=== PATIENT | male | born 1935 | race Caucasian/White ===

== ENCOUNTER 2016-12-02 11:59 | Observation (INO) | payer MEDICARE, OTHER ==
[2016-12-02] MEDS ORDERED: ACETAMINOPHEN 325 MG TABLET PO PRN (12:29)
[2016-12-02] MEDS ORDERED: MAG-AL PLUS XS SUSP 30 ML UDC PO PRN (12:29)
[2016-12-02] MEDS ORDERED: HOME MEDICATION LIST NEEDED 1 EA EACH MC ONE (12:29)
[2016-12-02] MEDS ORDERED: DIPH,PERTUSS(ACELL),TET VAC/PF 0.5 ML VIAL IM ONE (12:35)
[2016-12-02 12:39] LABS: BASOPHIL# 0.1 X 10^3uL (0.0-0.1); EOSINOPHILS# 0.1 X 10^3uL (0.0-0.4); HEMOGLOBIN 17.6 g/dL (14.0-18.0); LYMPHOCYTES 22.8 % (20.0-40.0); LYMPHOCYTES# 1.5 X 10^3uL (0.8-3.8); MEAN CELL VOLUME 93.9 fL (80.0-100.0); MEAN CORPUS. HGB CONCENTRATION 33.9 g/dL (32.0-36.0); MEAN CORPUSCULAR HEMOGLOBIN 31.8 pg (29.0-35.0); MEAN PLATELET VOLUME 7.8 fL (7.4-10.4); MONOCYTES 11.4 % (2.0-10.0); MONOCYTES# 0.7 X 10^3uL (0.2-1.0); NEUTROPHILS 62.8 % (54.0-75.0); NEUTROPHILS# 4.1 X 10^3uL (2.6-6.7); PLATELET COUNT 189 X 10^3uL (130-440); RED BLOOD COUNT 5.54 X 10^6uL (4.20-6.10); RED CELL DISTRIBUTION WIDTH 12.5 % (11.5-14.5); WHITE BLOOD COUNT 6.5 X 10^3uL (3.9-10.7)
[2016-12-02] MEDS ORDERED: NORMAL SALINE 100 ML IV ONE (12:44)
[2016-12-02] MEDS ORDERED: AMPICILLIN/SULBACTAM 1.5 GM/10 ML VIAL IV ONE (12:44)
[2016-12-02 12:46] LABS: BLOOD UREA NITROGEN 19 mg/dL (9-20); CALCIUM 9.3 mg/dL (8.4-10.2); CHLORIDE 95 mmol/L (98-107); GLUCOSE 105 mg/dL (70-100); POTASSIUM 4.3 mmol/L (3.5-5.1); SODIUM 131 mmol/L (137-145)
--- NOTE | 2016-12-02 12:52 | RADIOLOGY REPORT ---
HISTORY: Trauma. COMPARISON: None. TECHNIQUE: AP and lateral left forearm. FINDINGS: There is no evidence of acute fracture. There is normal bone mineralization. There is no evidence of bony erosions or periostitis. There appears to be soft tissue swelling along the dorsum of the forear m. There are degenerative changes between the distal scaphoid and trapezium and trapezoid and at the first carpal metacarpal joint. IMPRESSION: 1. No acute fracture. 2. Soft tissue swelling dorsum forearm. Final Electronic Signature: This report was electronically signed by Toribio Olmos MD on 12/02/2016 1 2:49 PM. linda /
[2016-12-02] MEDS ORDERED: NORMAL SALINE 1,000 ML IV SCH (13:00)
--- NOTE | 2016-12-02 13:19 | ER PHYSICIAN DOCUMENTATION ---
Physician Documentation [facility] Name:Garrett Marino Age:81 yrs Sex:Male :1935 Arrival Date:12/02/2016 Time:11:59 Bed1 Private MD: Placido Gallegos Disposition: 12/02/16 12:47 Admit ordered for Tianna Argueta. Preliminary diagnosis is Cellulitis of Upper Limb - with open wound. - Bed requested for Medical/Surgical. - Condition is Fair. - Problem is new. - Symptoms are unchanged. 23 HR OBS Yes HPI: 12/02 12:15 This 81 yrs old Male presents to ER via Private Vehicle with complaints of cd Left Arm Injury and possible cellulitis. 12:15 The patient or guardian complains of contusion, a laceration, 2 cm(s), simple, infected cd with drainage and surrounding forearm erythema. The complaints affect the palmar aspect of left forearm. Context: The problem was sustained at home, resulted from a direct blow, on a wooden chair., a fall. Onset: The symptom(s)/episode began/occurred acutely, 4 day(s) ago. Treatment prior to arrival includes: no previous treatment. Associated signs and symptoms: Pertinent positives: erythema, swelling, warmth, tenderness, Pertinent negatives: deformity, fever, tingling, vomiting. Severity of symptoms: At their worst the symptoms were moderate, in the emergency department the symptoms are unchanged. The patient has not experienced similar symptoms in the past. Historical: - Allergies: No known drug Allergies; - Home Meds: 1. aspirin 81 mg oral tab 1 tab once daily 2. Lisinopril Oral - PMHx: Hypertension; - PSHx: Hip surgery; Tonsillectomy; Appendectomy; - Tetanus: < 10 years. - Ebola Screening: : Patient negative for fever greater than or equal to 101.5 degrees Fahrenheit, and additional compatible Ebola Virus Disease symptoms. Patient denies exposure to infectious person. Patient denies travel to an Ebola-affected area in the 21 days before illness onset. . - Immunization history: Flu Vaccine < 1 year. - Social history: Smoking status: Patient states was never smoker of tobacco. ROS: 12:15 ENT: Negative for injury, pain, epistaxis and discharge. cd Neck: Negative for injury, pain, stiffness and swelling. Cardiovascular: Negative for chest pain, palpitations, edema and pleuritic pain. Respiratory: Negative for shortness of breath, dyspnea on exertion, cough, sputum production, wheezing, hemoptysis and pleuritic chest pain. Abdomen/GI: Negative for abdominal pain, nausea, vomiting, diarrhea, constipation, distension, melena, hematochezia and hematemesis. Back: Negative for injury, pain or muscle spasms. : Negative for injury, bleeding, discharge, swelling, dysuria, frequency or urgency. 12:15 Neuro: Negative for headache, weakness, numbness, tingling, and seizure. cd 12:15 Constitutional: Positive for poor PO intake, Negative for chills, fever. 12:15 MS/extremity: Positive for contusion, erythema, swelling, tenderness, warmth, of the palmar aspect of left forearm, open 2 cm wound draining pus., Negative for paresthesias, tingling. 12:15 Skin: Positive for cellulitis, of the palmar aspect of left forearm, and open wound to left forearm draining pus. 12:15 All other systems are negative. Exam: Head/Face: Normocephalic, atraumatic. ENT: Nares patent. No nasal discharge, no septal abnormalities noted. Tympanic membranes are normal and external auditory canals are clear. Oropharynx with no redness, swelling, or masses, exudates, or evidence of obstruction, uvula midline. Mucous membranes moist. Neck: Trachea midline, no thyromegaly or masses palpated, and no cervical lymphadenopathy. Supple, full range of motion without nuchal rigidity, or vertebral point tenderness. No Meningismus. Chest/axilla: Normal chest wall appearance and motion. Nontender with no deformity. No lesions are appreciated. Cardiovascular: Regular rate and rhythm with a normal S1 and S2. No gallops, murmurs, or rubs. Normal PMI, no JVD. No pulse deficits. Respiratory: Lungs have equal breath sounds bilaterally, clear to auscultation and percussion. No rales, rhonchi or wheezes noted. No increased work of breathing, no retractions or nasal flaring. Abdomen/GI: Soft, non-tender, with normal bowel sounds. No distension or tympany. No guarding or rebound. No evidence of tenderness throughout. Back: No spinal tenderness. No costovertebral tenderness. Full range of motion. 12:25 Neuro: Awake and alert, GCS 15, oriented to person, place, time, and situation. cd Cranial nerves II-XII grossly intact. Motor strength 5/5 in all extremities. Sensory grossly intact. Cerebellar exam normal. Normal gait. 12:25 Constitutional: The patient appears alert, awake, non-diaphoretic, non-toxic, well developed, well nourished, in obvious distress, mildly distressed. 12:25 Musculoskeletal/extremity: Extremities: grossly normal except: noted in the palmar aspect of left forearm: erythema, swelling, tenderness, warmth and Cellulitis with an open wound draining pus., ROM: no acute changes, Circulation is intact in all extremities. Sensation intact. Mild ulnar pain to palpation. 12:25 Skin: cellulitis, that is moderate, on the palmar aspect of left forearm, almost circumferential, open 2 cm laceration / wound draining pus. 12:25 Neuro: Exam negative for acute changes. Vital Signs: 12:09 BP 155 / 67; Pulse 55; Resp 16; Temp 97.9(O); Pulse Ox 97% on R/A; Weight 56.7 kg (R); arc Height 5 ft. 3 in. (160.02 cm) (R); Pain 7/10; 13:17 Resp 16; Pain 1/10; lc 12:09 Body Mass Index 22.14 (56.70 kg, 160.02 cm) arc Morley Coma Score: 12:25 Eye Response: spontaneous(4). Verbal Response: oriented(5). Motor Response: obeys cd commands(6). Total: 15. Procedures: 12:25 Performed Wound irrigation, Wound Culture obtained and Corning drain placement by me. 4 cd x 4 dressing applied with Aldo. Tolerated well.. MDM: 12:10 Data interpreted: Pulse oximetry: on room air is 97 %. Interpretation: normal. Test cd interpretation: by ED physician or midlevel provider: plain radiologic studies. Counseling: I had a detailed discussion with the patient and/or guardian regarding: the historical points, exam findings, and any diagnostic results supporting the discharge/admit diagnosis, lab results, radiology results, the need for further work-up and treatment in the hospital. 12:18 Patient medically screened. cd 12:25 Differential diagnosis: open fracture, contusion, Infected wound and near-circumferential Right Forearm Cellulitis. 12:40 Physician consultation: Tianna Argueta DO was called at 12:35, was contacted at 12:35, regarding admission, to the floor, consult, patient's condition, need to evaluate the patient as soon as possible, and will see patient in inpatient room, shortly, later today. 12:45 Data reviewed: vital signs, nurses notes, old medical records, lab test result(s), cd radiologic studies, and as a result, I will admit patient, administer antibiotics Unasyn. 12:50 Admission orders: after a detailed discussion of the patient's condition and case, the admit orders are written by me. 12/02 12:41 Order name: CBC AUTO DIF, MDIF/RMOR IF IND; Complete Time: 14:15 [facility] 12/02 12:48 Interpretation: Normal. 12/02 12:55 Order name: BASIC METABOLIC PANEL; Complete Time: 14:15 [facility] 12/02 14:14 Interpretation: Normal Except: SODIUM 131; CHLORIDE 95; Hypochloremic Hyponatremia. 12/02 13:33 Order name: C-REACTIVE PROTEIN; Complete Time: 14:15 [facility] 12/02 14:14 Interpretation: Abnormal: C-REACTIVE PROTEIN 15.3; Elevated. 12/02 15:50 Order name: WOUND CULTURE AND GRAM STAIN [facility] 12/03 06:52 Order name: CBC AUTO DIF, MDIF/RMOR IF IND [facility] 12/03 07:12 Order name: BASIC METABOLIC PANEL [facility] 12/03 07:53 Order name: HEPATIC PANEL [facility] 12/03 13:34 Order name: BLOOD CULTURE [facility] 12/03 13:34 Order name: BLOOD CULTURE [facility] 12/02 12:53 Order name: FOREARM; [address] [place] [id number]; Complete Time: 14:15 [facility] 12/02 14:15 Interpretation: Normal: No fracture. 12/02 12:19 Order name: I & O; Complete Time: 12:29 12/02 12:19 Order name: NPO; Complete Time: 12:29 12/02 12:19 Order name: Dressing - Wound; Complete Time: 12:48 12/02 12:19 Order name: Wound Care; Complete Time: 12:48 cd Dispensed Medications: 12:28 Drug: Adacel 0.5 ml; {Senior Technical Program Manager: [employer] ([employer]). Exp: 08/21/2018. Lot #: [id number]. } Route: IM; Site: left deltoid; 12:48 Follow up: Response: No adverse reaction lc 12:47 Drug: Unasyn 1.5 grams; Route: IVPB; Rate: bolus; Infused Over: 1 hrs; Site: right lc forearm; Delivery: Pump; 13:16 Follow up: IV Status: Infusion continued upon admission; IV Intake: 50ml lc 12:48 Drug: NS 0.9% 1000 ml; Route: IV; Rate: 85 ml/hr; Site: right forearm; Delivery: Pump; 13:16 Follow up: IV Status: Infusion continued upon admission; IV Intake: 50ml lc Signatures: Satinder Jenkins RN RN tg Coleman, Linda, RN RN lc Daley, Chris, MD MD cd
--- NOTE | 2016-12-02 13:19 | ER NURSING DOCUMENTATION ---
Nurse's Notes [facility] Name:Garrett Marino Age:81 yrs Sex:Male :1935 Arrival Date:12/02/2016 Time:11:59 Bed1 Private MD: Diagnosis:Cellulitis of Upper Limb-with open wound Presentation: 12/02 12:03 Acuity: TANYA 3 lc 12:10 Presenting complaint: Patient states: HIT LEFT ARM ON A WOODEN CHAIR ON SATURDAY. HAS lc OPEN WOUND THAT IS DRAINING AND LARGE AREA OF REDNESS AROUND IT. NO TREATMENT DONE. Transition of care: Home. Notified ED Physician of patient's arrival and CC. 12:10 Method Of Arrival: Private Vehicle lc Triage Assessment: 12:15 General: Appears in no apparent distress, comfortable, Behavior is appropriate for age, lc cooperative. Pain: Complains of pain in palmar aspect of left forearm Pain At worst was 7 out of 10 on a pain scale. Quality of pain is described as throbbing, Aggravated by increased activity. Neuro: Level of Consciousness is awake, alert, Oriented to person, place, time, event. Musculoskeletal: Circulation, motion, and sensation intact Capillary refill < 3 seconds Range of motion intact in all extremities. Swelling present in left arm. Injury Description: Laceration sustained to palmar aspect of left forearm is 0.5 to 2.5 cm long, YELLOW DRAINAGE, OPEN WOUND was sustained 3 DAYS is bleeding a small amount. Historical: - Allergies: No known drug Allergies; - Home Meds: 1. aspirin 81 mg oral tab 1 tab once daily 2. Lisinopril Oral - PMHx: Hypertension; - PSHx: Hip surgery; Tonsillectomy; Appendectomy; - Tetanus: < 10 years. - Ebola Screening: : Patient negative for fever greater than or equal to 101.5 degrees Fahrenheit, and additional compatible Ebola Virus Disease symptoms. Patient denies exposure to infectious person. Patient denies travel to an Ebola-affected area in the 21 days before illness onset. . - Immunization history: Flu Vaccine < 1 year. - Social history: Smoking status: Patient states was never smoker of tobacco. Screenin:18 Infectious Disease Risk None. Abuse screen: Denies threats or abuse. Denies injuries lc from another. Nutritional screening: On no prescribed diet. Assessment: 12:17 See Triage Assessment done by same RN. lc 12:49 Reassessment: Patient appears in no apparent distress at this time. ALL ORDERS DONE, lc READY FOR ADMIT.. Vital Signs: 12:09 BP 155 / 67; Pulse 55; Resp 16; Temp 97.9(O); Pulse Ox 97% on R/A; Weight 56.7 kg (R); arc Height 5 ft. 3 in. (160.02 cm) (R); Pain 7/10; 13:17 Resp 16; Pain 1/10; lc 12:09 Body Mass Index 22.14 (56.70 kg, 160.02 cm) arc Kiana Coma Score: 12:25 Eye Response: spontaneous(4). Verbal Response: oriented(5). Motor Response: obeys cd commands(6). Total: 15. ED Course: 12:01 Patient arrived in ED. arc 12:03 Triage completed. lc 12:10 Dina Salazar, THOMAS is Primary Nurse. lc 12:18 Placido Ernandez MD is Attending Physician. cd 12:18 Valuables Remains with patient Patient has correct armband on for positive lc identification. Placed in gown. Bed in low position. Call light in reach. Adult w/ patient. 12:24 Patient moved to radiology. dnn 12:27 Inserted peripheral IV: 20 gauge in right forearm. tg 12:46 Tianna Argueta DO is Admitting Physician. cd 12:49 Labs drawn. (by ED staff). Sent per order to lab. First set of blood cultures drawn lc Second set of blood cultures drawn by nh. Wound care located on palmar aspect of left forearm was cleaned with Irrigation Normal Saline dressed with 4X4s, cling, CULTURE SENT, Patient tolerated well. 12:50 Wound culture sent to lab. Administered Medications: 12:28 Drug: Adacel 0.5 ml; {Income Tax Investigator: Sanofi Pasteur ([employer]). Exp: 08/21/2018. Lot #: [id number]. } Route: IM; Site: left deltoid; 12:48 Follow up: Response: No adverse reaction 12:47 Drug: Unasyn 1.5 grams; Route: IVPB; Rate: bolus; Infused Over: 1 hrs; Site: right lc forearm; Delivery: Pump; 13:16 Follow up: IV Status: Infusion continued upon admission; IV Intake: 50ml lc 12:48 Drug: NS 0.9% 1000 ml; Route: IV; Rate: 85 ml/hr; Site: right forearm; Delivery: Pump; lc 13:16 Follow up: IV Status: Infusion continued upon admission; IV Intake: 50ml lc Intake: 13:16 IV: 50ml; Total: 50ml. lc 13:16 IV: 50ml; Total: 100ml. lc Outcome: 12:47 Decision to Admit by Provider. cd 13:17 Admitted to Med/surg accompanied by nurse, family with patient, via stretcher, with lc chart. 13:17 Condition: stable 13:17 Report given to YVONNE RN 13:17 Instructed on need to admit 13:18 Patient left the ED. Signatures: Satinder Jenkins RN RN Dina Harden RN RN Placido Khan MD MD cd Norman, David dnn Chew, Amelia, Sushant Reg arc
[2016-12-02 13:32] LABS: C-REACTIVE PROTEIN 15.3 mg/L (<10.0)
[2016-12-02] MEDS: AMPICILLIN/SULBACTAM 1.5 GM in NORMAL SALINE MINI-BAG+ 100 ML IV SCH (18:25)
--- NOTE | 2016-12-02 22:14 | HISTORY & PHYSICAL ---
DATE OF ADMISSION: 12/02/16 ATTENDING PHYSICIAN: Tianna Argueta MD PRIMARY CARE PHYSICIAN: In [place]. He did not know the name of his primary care physician, as they have recently retired. SENIOR EXECUTIVE ASSISTANT: Dr. Eric Davidson. CHIEF COMPLAINT: Arm redness and injury. HISTORY OF PRESENT ILLNESS: The patient is an 81-year-old man who typically lives in [place], but spends his summer in [place] near [place]. 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 His daughter was there with him at the time and noted some significant bleeding. They tried some simple first aid with paper towel, first aid cream and a Band-Aid and monitored the symptoms, and that was mainly the treatment that they did. Daughter did suggest evaluation at time of injury. When they re- evaluated it yesterday, his daughter had some significant concerns regarding appearance. They had a family friend who was staying at the cabin who was actually a physician, and they had him look at the wound, and he was told to come in the Emergency Department for evaluation. Patient states that he only has pain when he touches it or hits it on something, but otherwise there is no pain in the arm. He has noted oozing and drainage however. He has not had any fevers, chills, change in appetite or any other medical concerns. Patient is relatively healthy. He does not regularly see a physician, but is seen on an annual basis with Cardiology due to remote history of myocardial infarction. PAST MEDICAL HISTORY 1. Coronary artery disease. 2. Myocardial infarction in January 2010, treated with a Bare-metal stent of the right coronary artery. 3. Hypertension. 4. Dyslipidemia, which he did have myalgias on statins and patient admitting to stopping the statin medication 2-3 weeks ago. 5. Tremor. 6. Sciatica on the right. 7. History of bilateral hip arthroplasty. 8. Some mild cognitive decline. PAST SURGICAL HISTORY 1. Bilateral hip replaced. 2. Tonsillectomy. 3. Appendectomy. 4. Cardiac catheterization with stent placement in 2009. SOCIAL HISTORY: Patient lives most of the year in [place]. He has a primary care physician in [place], but he does not see them regularly. He is currently working at his [employer] in [place]. He is here with his daughter Emily who helps in the summer with the [employer] and lives in [place] the rest of the year. FAMILY HISTORY: Denies anything contributory but his father had a history of rheumatoid arthritis. MEDICATIONS Aspirin 81 mg which the patient did stop after his arm injury. Losartan 25 mg and he was previously on Pravastatin 20 mg but stopped this 2-3 weeks ago as he felt it caused myalgias. ALLERGIES: No known drug allergies. REVIEW OF SYSTEMS GENERAL: Negative for fevers, chills, fatigue. HEENT: No headache. No visual changes. He does have decreased hearing. No sore throat CARDIOVASCULAR: He denies any chest pain. No swelling in his legs. RESPIRATORY: No cough or shortness of breath. ABDOMEN: Normal appetite. No nausea, vomiting, diarrhea. EXTREMITY: Positive for arm pain and drainage and redness. NEURO: No change in mental status. Patient does describe that he has some memory trouble at baseline, specifically with names. PHYSICAL EXAMINATION VITAL SIGNS: In the Emergency Room showed a temperature of 97.9, blood pressure 155/67, pulse 55, respiratory rate 16. He was 97% on room air. GENERAL: Patient appears in no acute distress. He is sitting comfortably in the chair in the room. HEENT: Normocephalic, atraumatic. He has bilateral hearing aids. He is wearing glasses. Oropharynx is clear with moist mucous membranes. CARDIOVASCULAR: Normal S1, S2. No murmur heard. RESPIRATORY: Clear to auscultation bilaterally. ABDOMEN: Soft, nontender, nondistended. EXTREMITY: We did unwrap patients wound to evaluate on the floor. I did assist the nurse. We noted he has about a 1-2 cm incision with drain placed. No active discharge coming from the drain or the wound. He has 2 smaller wounds distally and an area of redness extending all the way up to his wrist and then entire anterior portion of his lower extremity. The wound is mid forearm with redness extending long term from wrist to elbow. Area of erythema was circled, and will continue to monitor drainage from the wound. It is overall nontender but no overly tender. NEURO: Nonfocal. PSYCHIATRIC: He is alert and oriented x3. Normal mood and affect. LABORATORY: CBC showed a white count of 6.5, hemoglobin 17.6, hematocrit 52, platelets of 189. BMP showed a sodium 131, potassium 4.3, chloride 95, bicarb 23 , BUN 19, creatinine 0.8 and glucose 105. Calcium is 9.3. CRP is elevated at 15.3. Patient has blood and wound cultures pending. A forearm x-ray shows no fracture. He does have soft tissue swelling. ASSESSMENT/PLAN: This is an 81-year-old gentleman with history of coronary artery disease and hypertension, presenting with left arm cellulitis and wound. 1. Cellulitis/wound infection. Again this injury occurred on . He has not done any significant home first aid besides just wrapping the area and now has obvious infection. Wound was irrigated and opened in the Emergency Room with drain placed. Was started on IV Unasyn and has received a tetanus shot. Will continue to monitor response to therapy and ask for surgical consultation tomorrow as anticipate may need further debridement or more skilled nursing wound care management. At this time, will continue IV antibiotics and discuss with both patient and daughter the need for monitoring in the hospital to demonstrate improvement with goal if able to transition to either outpatient oral therapy or if needed IV. 2. History of coronary artery disease. Patient seems to be quite stable at this point. He is only on Losartan and a daily aspirin. He has held his aspirin related to his acute wound, and he also stopped his statin medication due to myalgia. He is not complaining of any coronary artery symptoms or chest pain or shortness of breath. If he does need more surgical debridement will need to have EKG and further clearance. Patient has last seen Cardiology in March of 2016, and at that time he was recommended to follow up in 1 year. 3. Hypertension. Blood pressure was slightly elevated in the Emergency Room likely related to pain and acute illness. Will restart his Losartan and continue monitor. 4. Hyponatremia. Sodium was noted to be low at 131. I do not know patient's baseline, but he is asymptomatic with this. Could be some mild dehydration. Does have some IV fluids pending, and will reassess tomorrow if further workup needed. 5. Hyperlipidemia. Patient has history of hyperlipidemia with lab work from March showing an LDL of 116. He is hesitant to be on statin medication due to myalgias and admits to stopping this medication 2-3 weeks ago. 6. Sciatica. This seems to be a newer issue for patient. He has had evaluation with the back specialist including an epidural steroid injection some time this spring. He states that only helps his symptoms for a couple of weeks and he is now treating conservatively. 7. Deep vein thrombosis prophylaxis. Patient is quite mobile, will continue to ambulate. 8. Disposition. Patient does not have a local primary care physician, so will need to transition care tomorrow to Dr. Mann who is my covering physician. I have also asked for a surgical consult related to his wound and pending response to treatment and IV therapies, will depend on how long he needs to be here in the hospital. LUCÍA
[2016-12-03] MEDS: AMPICILLIN/SULBACTAM 1.5 GM in NORMAL SALINE MINI-BAG+ 100 ML IV SCH ×3 (01:14→12:24)
[2016-12-03 06:45] LABS: BASOPHIL# 0.1 X 10^3uL (0.0-0.1); BASOPHILS 1.2 % (0.0-2.0); EOSINOPHILS 2.9 % (0.0-6.0); EOSINOPHILS# 0.2 X 10^3uL (0.0-0.4); HEMATOCRIT 47.3 % (42.0-54.0); HEMOGLOBIN 15.9 g/dL (14.0-18.0); LYMPHOCYTES 21.7 % (20.0-40.0); LYMPHOCYTES# 1.2 X 10^3uL (0.8-3.8); MEAN CELL VOLUME 94.4 fL (80.0-100.0); MEAN CORPUS. HGB CONCENTRATION 33.7 g/dL (32.0-36.0); MEAN CORPUSCULAR HEMOGLOBIN 31.8 pg (29.0-35.0); MEAN PLATELET VOLUME 7.8 fL (7.4-10.4); MONOCYTES 10.9 % (2.0-10.0); MONOCYTES# 0.6 X 10^3uL (0.2-1.0); NEUTROPHILS 63.3 % (54.0-75.0); NEUTROPHILS# 3.3 X 10^3uL (2.6-6.7); PLATELET COUNT 160 X 10^3uL (130-440); RED BLOOD COUNT 5.01 X 10^6uL (4.20-6.10); RED CELL DISTRIBUTION WIDTH 12.8 % (11.5-14.5); WHITE BLOOD COUNT 5.4 X 10^3uL (3.9-10.7)
[2016-12-03 07:11] LABS: BLOOD UREA NITROGEN 13 mg/dL (9-20); CALCIUM 8.3 mg/dL (8.4-10.2); CHLORIDE 104 mmol/L (98-107); GLUCOSE 97 mg/dL (70-100); POTASSIUM 3.8 mmol/L (3.5-5.1); SODIUM 132 mmol/L (137-145)
[2016-12-03 07:51] LABS: BILIRUBIN, DIRECT 0.2 mg/dL (0.0-0.4); BILIRUBIN, TOTAL 1.1 mg/dL (0.2-1.3); TOTAL PROTEIN 5.8 g/dL (6.3-8.2)
[2016-12-03] MEDS ORDERED: LOSARTAN POTASSIUM 50 MG TABLET PO SCH (09:00)
--- NOTE | 2016-12-03 09:54 | DC SUMMARY: Gen Surgery Note ---
Discharge Summary: Surg/OB Provider: Date of Admission: 12/02/16 Admitting Provider: JOJO DUNLAP Attending Provider: JOJO DUNLAP Discharging Provider: SARAH GALLOWAY MD Primary Care Provider: Discharge Date: 12/03/16 Consults: 12/02/16 13:55 Surgical Consult [CONS] Routine Reason: 81 yo M with wound infection/cellulitis of left arm- drain placed in ED 12/02 and started on IV abx. Please help evaluate for response to treatment and potential further debridement/wound care needs. (Consult for Saturday) - Diagnosis (1) Wound infection, posttraumatic Status: Resolved Hospital Course: Mr. GUILLEN is a 81 year old male was admitted yesterday 3 days following a fall leaving him with a laceration of his left forearm. He was seen in the ED and the wound had a damian drain placed. He did well and today the erythema has resolved. He will be discharged later today and followed in wound clinic.He will take Augmentin for 5 days. He will dress the wound daily and pack with honey alginate. Discharge - Patient/Caregiver Discharge Instructions Activity Level: As tolerated. Diet: Regular Additional Instructions: The wound should be packed daily with honey alginate. Remove the packing each day and shower on the area. Swab the wound out with a q-tip. Repack with the honey alginate. Take the Augmentin as directed. It may cause diarrhea. Follow up with us in wound clinic in 5 to 7 days. Overall discharge status: patient is progressing back to baseline Gen Surgery: Discharge Exam - Latest Vital Signs and I&O Latest Vital Signs/I&O: Vital Signs Temp 36.4 C L 12/03/16 07:00 Pulse 53 L 12/03/16 07:00 Resp 24 12/03/16 07:00 BP 158/84 12/03/16 07:00 Pulse Ox 95 12/03/16 07:00 Intake & Output 12/02/16 12/03/16 12/03/16 17:59 05:59 17:59 Intake Total 240 1220 Output Total 1625 Balance 240 -405 Weight 56.5 kg 56 kg Intake: IV 920 Right Forearm 920 Oral 240 300 Output: Urine 1625 Other: Urine Appearance Clear Urine Color Yellow Voiding Method Toilet Urinal # Voids 1 - Exam Additional Exam: He has a 5cm laceration of his left forearm which has a large area of undermining. There are two smaller abrasions more distally. These are on the flexor surface with the larger laceration near the elbow. There is some edema but the previously marked erythema has resolved. Discharge Summary Data - Medication History Medication History: Home Medications Losartan Potassium 25 mg PO DAILY 12/02/16 aspirin EC [Aspirin EC*] 81 mg PO DAILY 12/02/16 Inpatient Medications 12/03/16 09:00 Losartan Potassium [Cozaar] 25 mg PO DAILY aspirin EC [Ecotrin 81 mg] 81 mg PO DAILY Procedures and tests throughout hospitalization: Completed Lab Orders 12/03/16 07:38 HEPATIC PANEL [CHEM] Stat Pending Orders 12/02/16 12:22 BLOOD CULTURE [BC] Routine BLOOD CULTURE [BC] Routine 12/02/16 12:35 WOUND CULTURE AND GRAM STAIN [RM] Routine 12/02/16 13:55 Surgical Consult [CONS] Routine 12/03/16 09:00 Losartan Potassium [Cozaar] 25 mg PO DAILY aspirin EC [Ecotrin 81 mg] 81 mg PO DAILY Labs on day of discharge: Labs from last 24 hours 12/03/16 12/03/16 07:38 06:25 WBC 5.4 RBC 5.01 Hgb 15.9 Hct 47.3 MCV 94.4 MCH 31.8 MCHC 33.7 RDW 12.8 Plt Count 160 MPV 7.8 Neutrophils % 63.3 Lymphocytes % 21.7 Eosinophils % 2.9 Basophils % 1.2 Neutrophils # 3.3 Lymphocytes # 1.2 Monocytes 10.9 H Monocytes # 0.6 Eosinophils # 0.2 Basophils # 0.1 Sodium 132 L Potassium 3.8 Chloride 104 Carbon Dioxide 21 L BUN 13 Creatinine 0.7 GFR Calculation Not Reportable Glucose 97 Calcium 8.3 L Total Bilirubin 1.1 Direct Bilirubin 0.2 AST 23 ALT 28 Alkaline Phosphatase 46 Total Protein 5.8 L Albumin 3.0 L
[2016-12-03 11:51] VITALS: BP 143/73; PULSE 51; RESP 18; TEMP 98.1; O2SAT 96
--- NOTE | 2016-12-03 14:24 | CONSULTATION ---
DATE OF CONSULTATION: 12/03/16 PERSONAL CARE WORKER: Sree Bravo MD CHIEF COMPLAINT: Left forearm cellulitis. 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 He said last he was leaning forwards to tie his shoes and then fell backwards, scrapping his left arm on a wooden chair. He had a large laceration which his daughter told him should be closed, but he neglected to do so and covered it with Band-Aids. He had increasing pain and erythema of the arm over the next 2 days and yesterday was seen in the Emergency Room. A Max drain was placed in the wound and it was irrigated out. He was started on IV Unasyn. He had cellulitis of the flexor surface of the left forearm. Today he feels no pain and is feeling much better. He denies any fevers or chills. PAST MEDICAL HISTORY 1. Coronary artery disease. 2. Myocardial infarction in 2009 with a metal stent placed. 3. Hypertension. 4. Dyslipidemia. 5. Tremor. 6. Right sided sciatica. 7. Bilateral hip replacement. 8. Mild dementia. PAST SURGICAL HISTORY 1. Bilateral hip replacements. 2. Tonsillectomy. 3. Appendectomy. 4. Cardiac catheterization. SOCIAL HISTORY: Lives in [place]. Rarely sees his physician in that area. 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 FAMILY HISTORY: Noncontributory. MEDICATIONS Aspirin 81 mg p.o. daily. Losartan 25 mg daily. ALLERGIES: None. REVIEW OF SYSTEMS CONSTITUTIONAL: He denies any fevers or chills. CARDIAC: He denies chest pain. PULMONARY: Denies shortness of breath. ABDOMEN: Denies abdominal discomfort. PHYSICAL EXAMINATION VITAL SIGNS: He is afebrile. His blood pressure is 158/84, pulse 53, respiratory rate 24. He has no pain and he is 95% saturated on room air. He is a very pleasant thin male in no acute distress. LEFT FOREARM: Over the flexor surface there is a 5 cm laceration that undermines significantly in the area. There is a Max drain in this and the Lamar drain is removed. The wound is swabbed out causing him a moderate amount of discomfort. There is no purulent material noted. There are 2 other small abrasions, more cephalad from these. There is edema in the area and there is a marked area for cellulitis. The erythema, which must have been present before is now nearly completely resolved. LABS: White count is normal and his chemistry panel is near the normal range as well. IMPRESSION 1. Laceration with cellulitis of the left forearm. 2. History of coronary artery disease with stent placement. 3. Hypertension. 4. Hyperlipidemia. 5. Mild dementia. PLAN: I would like him to get another dose of IV Unasyn today and then I think he can be discharged on Augment 875 mg/125 mg b.i.d. Will do that for 5 days. We will treat him on a daily basis with a honey algenate dressing to the larger laceration and Neosporin to the smaller lacerations. We will see him in the outpatient wound care clinic once a week to watch this wound. He was instructed to shower on the wound daily with the honey algenate removed and then have the wound cared for. He will return if things worsen. MTDD
== END 2016-12-03 09:57 | disposition home or self-care (01) ==
LOC: ER 11:59 → IN 13:10
PROVIDERS: ADMIT Family Medicine; ATTEND Family Medicine
DX: L03.114 Cellulitis of left upper limb (principal); I25.10 Atherosclerotic heart disease of native coronary artery without angina pectoris; E87.1 Hypo-osmolality and hyponatremia; I25.2 Old myocardial infarction; I10 Essential (primary) hypertension; E78.5 Hyperlipidemia, unspecified; R25.1 Tremor, unspecified; G31.84 Mild cognitive impairment of uncertain or unknown etiology; M54.31 Sciatica, right side; Z79.899 Other long term (current) drug therapy
CPT/HCPCS: 36415; 80048; 80076; 85025; 86140; 87040; 87070; 87205; 90471; 96365; 96367; 99217; 99219; 99285; G0378; J0295; J7030

== ENCOUNTER 2016-12-05 17:02 | Emergency (ER) | payer MEDICARE, OTHER ==
--- NOTE | 2016-12-05 18:19 | ER PHYSICIAN DOCUMENTATION ---
Physician Documentation [facility] Name:Garrett Marino Age:81 yrs Sex:Male :1935 Arrival Date:12/05/2016 Time:17:02 Bed2 Private MD:Physician, No ED Nikko Kent Disposition: 12/05/16 18:12 Discharged to Home/Self Care. Impression: Swelling Of Limb. - Condition is Good. - Discharge Instructions: DEPENDENT EDEMA Bilateral - PERIPHERAL EDEMA, Bilateral. - Medical Reconciliation form form. - Follow up: Private Physician; When: As needed; Reason: Continuance of care. - Problem is new. - Symptoms have improved. HPI: 12/05 18:03 This 81 yrs old Male presents to ER via Private Vehicle with complaints of jm Recheck - l hand. 18:03 The patient or guardian reports swelling. The complaints affect the left hand. Onset: jm The symptom(s)/episode began/occurred today. Pt recently admitted for cellulitis and DC'd yesterday on Augmentin. The wound is looking great, but his had swelled after being lower than his heart all day long. . Historical: - Allergies: No known drug Allergies; - Home Meds: 1. aspirin 81 mg oral tab 1 tab once daily 2. Lisinopril Oral - PMHx: HYPERTENSION; Cellulitis of Upper Limb - with open wound (December 02, 2016); - PSHx: HIP SURGERY; TONSILLECTOMY; APPENDECTOMY; - Tetanus: < 10 years. - Ebola Screening: : No symptoms or risks identified at this time. . - Immunization history: NA . - Social history: Smoking status: unknown if patient ever smoked tobacco. ROS: 18:04 MS/extremity: Positive for swelling. jm 18:04 Skin: Positive for swelling. Exam: 18:05 Constitutional: The patient appears alert, awake. jm 18:05 Musculoskeletal/extremity: Extremities: grossly normal except: noted in the left hand: swelling, There is no evidence of decreased ROM, pain, tenderness, ROM: intact in all extremities, Pulses: are normal with no appreciated deficits. 18:05 Skin: Appearance: swelling, noted on the left hand, that are mild, cellulitis, that is minimal, Arm cellulitis is much improved. . Vital Signs: 17:10 BP 139 / 84; Pulse 16; Resp 56; Temp 97.3(O); Pulse Ox 95% on R/A; Pain 0/10; nf MDM: 17:07 Patient medically screened. lorenzo 18:06 Differential diagnosis: dependant edema. Data reviewed: vital signs, nurses notes, and jm as a result, I will discharge patient. Counseling: I had a detailed discussion with the patient and/or guardian regarding: the historical points, exam findings, and any diagnostic results supporting the discharge/admit diagnosis. Dispensed Medications: No medications were administered Signatures: Joanne Abad, RN RN Nikko Penn MD MD jm
--- NOTE | 2016-12-05 18:19 | ER NURSING DOCUMENTATION ---
Nurse's Notes [facility] Name:Garrett Marino Age:81 yrs Sex:Male :1935 Arrival Date:12/05/2016 Time:17:02 Bed2 Private MD:Physician, Svetlana Diagnosis:Swelling Of Limb Presentation: 12/05 17:07 Transition of care: patient was not received from another setting of care. Notified ED nf Physician of patient's arrival and CC Bossman Lindquist notified. 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 Triage Assessment: 17:10 General: Appears in no apparent distress, well nourished, well groomed, Behavior is nf pleasant. Pain: Denies pain. 17:10 Derm: left hand and wrist deep pink and swollen; with dressing removed - cellulitis of nf forearm improved significantly as compared to pen markings on skin; forearm open wound. Historical: - Allergies: No known drug Allergies; - Home Meds: 1. aspirin 81 mg oral tab 1 tab once daily 2. Lisinopril Oral - PMHx: HYPERTENSION; Cellulitis of Upper Limb - with open wound (December 02, 2016); - PSHx: HIP SURGERY; TONSILLECTOMY; APPENDECTOMY; - Tetanus: < 10 years. - Ebola Screening: : No symptoms or risks identified at this time. . - Immunization history: NA . - Social history: Smoking status: unknown if patient ever smoked tobacco. Screenin:10 Infectious Disease Risk None. Abuse screen: Denies threats or abuse. Nutritional nf screening: No deficits noted. Assessment: 17:10 See Triage Assessment done by same RN. nf Vital Signs: 17:10 BP 139 / 84; Pulse 16; Resp 56; Temp 97.3(O); Pulse Ox 95% on R/A; Pain 0/10; nf ED Course: 17:05 Patient arrived in ED. ds 17:05 Physician, No is Private Physician. ds 17:07 Joanne Abad, RN is Primary Nurse. nf 17:07 Triage completed. nf 17:10 Arm band placed on Bed in low position Call Light in Reach HOB Elevated Side rails up nf x1. Family accompanied patient. dressing removed. 17:10 Valuables Remains with patient. Door closed. Noise minimized. Lights dimmed. Moved to private room. Verbal reassurance given. Warm blanket given. Pillow given. 17:19 Nikko Keita MD is Attending Physician. lorenzo 18:10 Wound care located on left forearm was dressed with honey impregnated gauze, bulky nf 4x4s, velia wrap, and tube gauze/ stockinette style, Patient tolerated well. Administered Medications: No medications were administered Outcome: 18:12 Discharge ordered by . lorenzo 18:18 Patient left the ED. nf 18:18 Discharged to home ambulatory. nf 18:18 Condition: good 18:18 Discharge Assessment: Patient awake, alert and oriented x 3. No cognitive and/or functional deficits noted. Patient verbalized understanding of disposition instructions. 18:18 Discharge instructions given to patient, family, Instructed on discharge instructions, follow up and referral plans. medication usage, wound care, will continue augmentin and follow up with wound care nurse tomorrow as previously scheduled Demonstrated understanding of instructions, medications. 12/06 11:37 Discharge F/U Call: Unable to reach: non-working number [id number] Signatures: Rachelle Garcia RN RN sc1 Joanne Abad, RN RN nf Srot, Lizzie, Reg Reg Nikko Gallagher MD MD jm
== END 2016-12-05 18:19 | disposition home or self-care (01) ==
LOC: ER 17:02
DX: M79.89 Other specified soft tissue disorders (principal); L03.114 Cellulitis of left upper limb; S51.812D Laceration without foreign body of left forearm, subsequent encounter
CPT/HCPCS: 99281; 99283